=== PATIENT | female | born 1950 | race African-American/Black ===

== ENCOUNTER 2024-02-29 11:36 | Inpatient (IN) | payer OTHER ==
[~2024-02-29] VITALS: Ht 162.6 cm; Wt 73.0 kg
[2024-02-29 11:41] VITALS: PULSE 109; RESP 16; TEMP 98.1; O2SAT 98
[2024-02-29 12:44] LABS: BASOPHILS % (AUTO) 0.5 % (0.0-2.0); EOSINOPHILS % (AUTO) 0.7 % (0.0-4.0); HEMATOCRIT 20.9 % (36-48); LYMPHOCYTES # (AUTO) 0.5 K/uL (2.5-16.5); MEAN CORPUSCULAR HEMOGLOBIN 31 pg (27-31); MEAN CORPUSCULAR HGB CONC 32 g/dL (33-37); MEAN CORPUSCULAR VOLUME 94.8 fL (80-94); MONOCYTES # (AUTO) 0.6 K/uL (0.8-1.0); MONOCYTES % (AUTO) 8.4 % (1.7-9.3); NEUTROPHILS # (AUTO) 5.8 K/uL (1.8-7.7); NEUTROPHILS % (AUTO) 83.4 % (42.2-75.2); PLATELET COUNT (AUTO) 158 K/uL (140-450); RED CELL DISTRIBUTION WIDTH 20.6 % (11.6-13.7); WHITE BLOOD COUNT (AUTO) 6.9 K/uL (4.8-10.8)
[2024-02-29 13:00] LABS: ANION GAP 17.9 (8-16); CALCIUM 9.3 mg/dL (8.5-10.1); CARBON DIOXIDE 28.1 mmol/L (21-32); CHLORIDE 98 mmol/L (98-107); GLUCOSE 119 mg/dL (74-106); SODIUM SERUM 139 mmol/L (136-145); UREA NITROGEN, BLOOD 57 mg/dL (7-18)
[2024-02-29] MEDS: NACL 0.9% 500 ML IV ONE (13:00)
[2024-02-29 13:01] LABS: INR 1.16 (0.8-1.2); PROTHROMBIN TIME 12.1 secs (10.8-13.4)
[2024-02-29 13:05] LABS: HEMOGLOBIN 6.8 g/dL (12.0-16.0)
[2024-02-29 13:10] LABS: CREATININE 5.3 mg/dL (0.6-1.3)
[2024-02-29] MEDS: MIDODRINE 5 MG TAB PO ONE (13:18)
[2024-02-29] MEDS ORDERED: MAG SULF 2000 MG/WATER PREMIX 50 ML IV PRN (14:25)
[2024-02-29] MEDS ORDERED: POTASSIUM CHLORIDE 10 MEQ TABER PO PRN (14:25)
[2024-02-29] MEDS ORDERED: ACETAMINOPHEN 325 MG TAB PO PRN (14:25)
[2024-02-29 15:13] LABS: AMYLASE 143 U/L (25-115); CHOL/HDL RATIO 2.6 (1-4.5); CHOLESTEROL 103 mg/dL (<200); FREE T4 (FREE THYROXINE) 1.11 ng/dL (0.76-1.46); HDL CHOLESTEROL 39 mg/dL (40-60); LDL (CALC) 57 mg/dL (60-100); LIPASE 47 U/L (16-77); MAGNESIUM 2.5 mg/dL (1.8-2.4); PHOSPHORUS 6.1 mg/dL (2.5-4.9); THYROID STIMULATING HORMONE 4.59 uIU/mL (0.34-3.74); TRIGLYCERIDES 37 mg/dL (30-150)
[2024-02-29 15:24] LABS: PARTIAL THROMBOPLASTIN TIME 46.2 secs (22-35.6)
[2024-02-29] MEDS ORDERED: PHE25S RC (20:41)
[2024-02-29] MEDS ORDERED: FLOR250 PO (20:41)
[2024-02-29] MEDS ORDERED: OMEP-303 PO (20:41)
[2024-02-29] MEDS ORDERED: SYN.05 PO (20:41)
[2024-02-29] MEDS ORDERED: MEGE40SU23 PO (20:41)
[2024-02-29] MEDS ORDERED: ALPR0.5T2 PO (20:41)
[2024-02-29] MEDS ORDERED: SENN-73 PO (20:41)
[2024-02-29] MEDS ORDERED: ALBU0.0912 INH (20:41)
[2024-02-29] MEDS ORDERED: APIX2.5 PO (20:41)
[2024-02-29] MEDS: DOCUSATE SODIUM 100 MG GELCAP PO SCH (21:00)
[2024-02-29 21:12] VITALS: PULSE 104; RESP 20; O2SAT 97
[2024-03-01] VITALS (9 sets, daily range): BP systolic 109–145; BP diastolic 51–84; PULSE 101–143; RESP 16–20; TEMP 96.5–98; O2SAT 90–98
[2024-03-01] MEDS: PANTOPRAZOLE 40 MG INJ VIAL IVP SCH (09:48)
[2024-03-01] MEDS: EPOETIN ALFA-EPBX 10,000 UNITS/ML VIAL SUBQ SCH (09:49)
[2024-03-01] MEDS ORDERED: INSULIN LISPRO SLIDING SCALE 100 UNITS/ML VIAL SUBQ PRN (13:15)
[2024-03-01] MEDS ORDERED: ALBUTEROL HFA MDI 90 MCG/ACTUATION 8 GM INH PRN (13:30)
[2024-03-01] MEDS: BLOOD GLUCOSE MONITORING 1 DEV DEV FS SCH (17:22)
[2024-03-01] MEDS ORDERED: PROMETHAZINE 25 MG SUPP RC SCH (18:00)
[2024-03-01] MEDS ORDERED: NON-FORMULARY ITEM (Saccharomyces Boulardii* (Florastor*) 250 MG) PO SCH (21:00)
[2024-03-01] MEDS ORDERED: MEGESTROL ACETATE 800 MG PO SCH (21:00)
[2024-03-01] MEDS: MEGESTROL 400 MG/10 ML UDC PO SCH (21:19)
[2024-03-01] MEDS: APIXABAN 2.5 MG TAB PO SCH (21:20)
[2024-03-02] VITALS (8 sets, daily range): BP systolic 97–123; BP diastolic 59–89; PULSE 1–142; RESP 18–19; TEMP 97–98.6; O2SAT 95–99
[2024-03-02] MEDS: LEVOTHYROXINE 0.025 MG TAB PO SCH (05:45)
[2024-03-02] MEDS ORDERED: NON-FORMULARY ITEM (Omeprazole 20 MG) PO SCH (09:00)
[2024-03-02] MEDS: LACTOBACILLUS RHAMNOSUS GG 1 EACH CAP PO SCH (09:47)
[2024-03-02] MEDS: SENNA 8.6 MG TAB PO SCH (09:47)
[2024-03-02] MEDS: HYDROcodone/APAP 7.5/325 MG 1 TAB PO PRN (20:49)
[2024-03-02] MEDS: ALPRAZolam 0.5 MG TAB PO PRN (21:05)
[2024-03-02 21:57] LABS: BASOPHILS % (AUTO) 0.3 % (0.0-2.0); LYMPHOCYTES # (AUTO) 0.3 K/uL (2.5-16.5); LYMPHOCYTES % (AUTO) 4.5 % (20.5-51.1); MONOCYTES # (AUTO) 0.5 K/uL (0.8-1.0); NEUTROPHILS # (AUTO) 6.4 K/uL (1.8-7.7); WHITE BLOOD COUNT (AUTO) 7.3 K/uL (4.8-10.8)
[2024-03-02 22:00] LABS: EOSINOPHILS % (AUTO) 0.5 % (0.0-4.0); HEMOGLOBIN 7.8 g/dL (12.0-16.0); MEAN CORPUSCULAR HEMOGLOBIN 31 pg (27-31); MEAN CORPUSCULAR HGB CONC 33 g/dL (33-37); MEAN CORPUSCULAR VOLUME 94.1 fL (80-94); MONOCYTES % (AUTO) 6.9 % (1.7-9.3); NEUTROPHILS % (AUTO) 87.8 % (42.2-75.2); PLATELET COUNT (AUTO) 129 K/uL (140-450); RED BLOOD CELL COUNT(AUTO) 2.55 MIL/uL (4.20-5.40); RED CELL DISTRIBUTION WIDTH 19.6 % (11.6-13.7)
[2024-03-02 22:06] LABS: ANION GAP 17.9 (8-16); CALCIUM 8.9 mg/dL (8.5-10.1); CARBON DIOXIDE 25.8 mmol/L (21-32); CHLORIDE 100 mmol/L (98-107); GLUCOSE 123 mg/dL (74-106); POTASSIUM 4.7 mmol/L (3.5-5.1); SODIUM SERUM 139 mmol/L (136-145)
[2024-03-02 22:09] LABS: CREATININE 4.8 mg/dL (0.6-1.3); UREA NITROGEN, BLOOD 62 mg/dL (7-18)
[2024-03-02 22:34] LABS: MAGNESIUM 2.4 mg/dL (1.8-2.4); PHOSPHORUS 6.1 mg/dL (2.5-4.9)
[2024-03-03] VITALS (11 sets, daily range): BP systolic 85–150; BP diastolic 57–123; PULSE 50–152; RESP 18–20; TEMP 97–99.5; O2SAT 98–100
[2024-03-03 06:56] LABS: BASOPHILS # (AUTO) 0.1 K/uL (0.00-0.22); BASOPHILS % (AUTO) 1.1 % (0.0-2.0); EOSINOPHILS % (AUTO) 0.6 % (0.0-4.0); HEMATOCRIT 22.7 % (36-48); HEMOGLOBIN 7.3 g/dL (12.0-16.0); LYMPHOCYTES # (AUTO) 0.4 K/uL (2.5-16.5); LYMPHOCYTES % (AUTO) 6.1 % (20.5-51.1); MEAN CORPUSCULAR HEMOGLOBIN 30 pg (27-31); MEAN CORPUSCULAR HGB CONC 32 g/dL (33-37); MEAN CORPUSCULAR VOLUME 93.6 fL (80-94); MONOCYTES # (AUTO) 0.5 K/uL (0.8-1.0); MONOCYTES % (AUTO) 6.6 % (1.7-9.3); NEUTROPHILS # (AUTO) 6.1 K/uL (1.8-7.7); NEUTROPHILS % (AUTO) 85.6 % (42.2-75.2); PLATELET COUNT (AUTO) 140 K/uL (140-450); RED BLOOD CELL COUNT(AUTO) 2.43 MIL/uL (4.20-5.40); RED CELL DISTRIBUTION WIDTH 19.3 % (11.6-13.7); WHITE BLOOD COUNT (AUTO) 7.1 K/uL (4.8-10.8)
[2024-03-03 07:01] LABS: ANION GAP 18.1 (8-16); CALCIUM 8.7 mg/dL (8.5-10.1); CARBON DIOXIDE 27.2 mmol/L (21-32); CHLORIDE 99 mmol/L (98-107); GLUCOSE 105 mg/dL (74-106); POTASSIUM 5.3 mmol/L (3.5-5.1); SODIUM SERUM 139 mmol/L (136-145)
[2024-03-03 07:04] LABS: UREA NITROGEN, BLOOD 64 mg/dL (7-18)
[2024-03-03 07:05] LABS: CREATININE 5.1 mg/dL (0.6-1.3)
[2024-03-03 07:07] LABS: MAGNESIUM 2.4 mg/dL (1.8-2.4); PHOSPHORUS 6.3 mg/dL (2.5-4.9)
[2024-03-03] MEDS ORDERED: FOAM DRESSING TP PRN (11:45)
[2024-03-03] MEDS ORDERED: HYDRAGUARD CREAM TP PRN (11:45)
[2024-03-03] MEDS ORDERED: GAUZE TP PRN (11:45)
[2024-03-03] MEDS ORDERED: NON ADHERENT DRESSING TP PRN (11:45)
[2024-03-03] MEDS ORDERED: VANCOMYCIN PER PHARMACY MC PRN (12:25)
[2024-03-03] MEDS: MORPHINE SULFATE 2 MG/ML SYR IVP PRN (12:44)
[2024-03-03] MEDS: GAUZE TP SCH (13:00)
[2024-03-03] MEDS: HYDRAGUARD CREAM TP SCH (13:00)
[2024-03-03] MEDS: FOAM DRESSING TP SCH (13:00)
[2024-03-03] MEDS: NON ADHERENT DRESSING TP SCH (13:00)
[2024-03-03] MEDS ORDERED: NACL 0.9% 500 ML IV SCH (13:45)
[2024-03-03] MEDS: CALCIUM ACETATE 667 MG TAB PO SCH (17:51)
[2024-03-03] MEDS: VANCOMYCIN 1,000 MG in DEXTROSE 5% 250 ML IV SCH (21:03)
[2024-03-04] VITALS (19 sets, daily range): BP systolic 45–166; BP diastolic 25–59; PULSE 47–148; RESP 16–24; TEMP 96–98.1; O2SAT 88–100
[2024-03-04 06:29] LABS: BASOPHILS % (AUTO) 0.3 % (0.0-2.0); EOSINOPHILS % (AUTO) 0.2 % (0.0-4.0); HEMATOCRIT 23.7 % (36-48); HEMOGLOBIN 7.8 g/dL (12.0-16.0); LYMPHOCYTES # (AUTO) 0.4 K/uL (2.5-16.5); LYMPHOCYTES % (AUTO) 5.6 % (20.5-51.1); MEAN CORPUSCULAR HEMOGLOBIN 31 pg (27-31); MEAN CORPUSCULAR HGB CONC 33 g/dL (33-37); MEAN CORPUSCULAR VOLUME 93.5 fL (80-94); MONOCYTES # (AUTO) 0.6 K/uL (0.8-1.0); MONOCYTES % (AUTO) 8.3 % (1.7-9.3); NEUTROPHILS # (AUTO) 6.4 K/uL (1.8-7.7); NEUTROPHILS % (AUTO) 85.6 % (42.2-75.2); PLATELET COUNT (AUTO) 137 K/uL (140-450); RED BLOOD CELL COUNT(AUTO) 2.53 MIL/uL (4.20-5.40); RED CELL DISTRIBUTION WIDTH 18.9 % (11.6-13.7); WHITE BLOOD COUNT (AUTO) 7.5 K/uL (4.8-10.8)
[2024-03-04 06:40] LABS: MAGNESIUM 2.4 mg/dL (1.8-2.4); PHOSPHORUS 6.3 mg/dL (2.5-4.9)
[2024-03-04 06:42] LABS: ANION GAP 18.2 (8-16); CALCIUM 9.1 mg/dL (8.5-10.1); CARBON DIOXIDE 25.9 mmol/L (21-32); CHLORIDE 100 mmol/L (98-107); GLUCOSE 98 mg/dL (74-106); POTASSIUM 5.1 mmol/L (3.5-5.1); SODIUM SERUM 139 mmol/L (136-145); UREA NITROGEN, BLOOD 58 mg/dL (7-18)
[2024-03-04 06:49] LABS: CREATININE 5.1 mg/dL (0.6-1.3)
[2024-03-04] MEDS: MIDODRINE 5 MG TAB PO SCH (13:00)
[2024-03-04] MEDS: ALBUTEROL 0.083% 2.5 MG/3 ML NEBU INH PRN (14:04)
[2024-03-04] MEDS ORDERED: ALBUTEROL SULFATE/IPRATROPIU 3 ML SOL IH PRN (16:05)
[2024-03-04] MEDS: ALBUTEROL SULFATE/IPRATROPIU 3 ML SOL IH SCH (19:05)
[2024-03-04 20:07] LABS: BLOOD GAS PCO2 40.2 mmHg (35-45); BLOOD GAS PH 7.395 (7.35-7.45)
[2024-03-04 20:08] LABS: BLOOD GAS BASE EXCESS -0.7 mmol/L (-2.0-2.0); BLOOD GAS HCO3 24.1 mmol/L (22-26); BLOOD GAS O2 SAT% 78.7 % (92.0-98.5); BLOOD GAS PO2 48.7 mmHg (75-100)
[2024-03-04] MEDS: DEXTROSE 50% 50 ML SYR IVP PRN (21:20)
[2024-03-05] VITALS (13 sets, daily range): BP systolic 87–132; BP diastolic 56–72; PULSE 103–130; RESP 14–20; TEMP 96.2–97.8; O2SAT 92–100
[2024-03-05 04:56] LABS: BASOPHILS % (AUTO) 0.5 % (0.0-2.0); EOSINOPHILS # (AUTO) 0.1 K/uL (0-0.4); EOSINOPHILS % (AUTO) 0.6 % (0.0-4.0); HEMATOCRIT 25.8 % (36-48); HEMOGLOBIN 8.3 g/dL (12.0-16.0); LYMPHOCYTES # (AUTO) 0.4 K/uL (2.5-16.5); LYMPHOCYTES % (AUTO) 4.5 % (20.5-51.1); MEAN CORPUSCULAR HEMOGLOBIN 31 pg (27-31); MEAN CORPUSCULAR HGB CONC 32 g/dL (33-37); MEAN CORPUSCULAR VOLUME 95.6 fL (80-94); MONOCYTES # (AUTO) 0.4 K/uL (0.8-1.0); MONOCYTES % (AUTO) 4.1 % (1.7-9.3); NEUTROPHILS # (AUTO) 8.3 K/uL (1.8-7.7); NEUTROPHILS % (AUTO) 90.3 % (42.2-75.2); PLATELET COUNT (AUTO) 176 K/uL (140-450); RED CELL DISTRIBUTION WIDTH 19.4 % (11.6-13.7); WHITE BLOOD COUNT (AUTO) 9.2 K/uL (4.8-10.8)
[2024-03-05 04:59] LABS: ANION GAP 20.6 (8-16); CALCIUM 9.2 mg/dL (8.5-10.1); CARBON DIOXIDE 22.7 mmol/L (21-32); CHLORIDE 100 mmol/L (98-107); GLUCOSE 103 mg/dL (74-106); SODIUM SERUM 137 mmol/L (136-145)
[2024-03-05 05:02] LABS: POTASSIUM 6.3 mmol/L (3.5-5.1); UREA NITROGEN, BLOOD 70 mg/dL (7-18)
[2024-03-05 05:03] LABS: CREATININE 5.6 mg/dL (0.6-1.3)
[2024-03-05 05:05] LABS: MAGNESIUM 2.6 mg/dL (1.8-2.4); PHOSPHORUS 6.9 mg/dL (2.5-4.9)
[2024-03-05] MEDS: CALCIUM GLUC 1 GM/50 mL NS BAG 50 ML IV SCH (11:06)
[2024-03-05] MEDS: ALTEPLASE 2 MG VIAL MC SCH (12:15)
[2024-03-05] MEDS: ONDANSETRON 4 MG/2 ML VIAL IVP PRN (12:39)
[2024-03-05] MEDS: ALBUMIN HUMAN 25% 50 ML IV SCH (13:25)
[2024-03-05] MEDS ORDERED: VANC1VIA34 MC (16:43)
== END 2024-03-05 19:15 | DRG 602 ==
LOC: MED 11:36 → MTU 14:30 → MIC 03-04 21:34
PROC: 30233N1 Transfusion of Nonautologous Red Blood Cells into Peripheral Vein, Percutaneous Approach (ICD-10-PCS; principal; 2024-03-01)
PROC: 5A1D70Z Performance of Urinary Filtration, Intermittent, Less than 6 Hours Per Day (ICD-10-PCS; 2024-03-01)
PROC: 5A1D70Z Performance of Urinary Filtration, Intermittent, Less than 6 Hours Per Day (ICD-10-PCS; 2024-03-03)
PROC: 5A1D70Z Performance of Urinary Filtration, Intermittent, Less than 6 Hours Per Day (ICD-10-PCS; 2024-03-05)
DX: L03.031 Cellulitis of right toe (principal); G93.41 Metabolic encephalopathy; I21.A1 Myocardial infarction type 2; N17.0 Acute kidney failure with tubular necrosis; N18.6 End stage renal disease; J18.9 Pneumonia, unspecified organism; I13.2 Hypertensive heart and chronic kidney disease with heart failure and with stage 5 chronic kidney disease, or end stage renal disease; I50.42 Chronic combined systolic (congestive) and diastolic (congestive) heart failure; I95.9 Hypotension, unspecified; D63.1 Anemia in chronic kidney disease; E11.22 Type 2 diabetes mellitus with diabetic chronic kidney disease; E78.5 Hyperlipidemia, unspecified; F41.9 Anxiety disorder, unspecified; E03.9 Hypothyroidism, unspecified; Z79.899 Other long term (current) drug therapy; L89.159 Pressure ulcer of sacral region, unspecified stage; G35 Multiple sclerosis; M20.10 Hallux valgus (acquired), unspecified foot; M21.619 Bunion of unspecified foot
CPT/HCPCS: 36415; 36430; 71045; 73630; 80048; 80202; 82140; 82150; 82272; 82948; 83036; 83605; 83690; 83735; 83880; 84100; 84439; 84443; 84484; 85025; 85610; 85730; 86886; 86900; 86901; 86920; 87040; 87081; 87186; 90935; 92526; 93925; 93930; 93970; 93971; 94640; 97110; 97163-GP; 97530; 99285; C9113; J0610; J1644; J1815; J2270; J2405; J2470; J2550; J2997; J3370; J7060; J7613; P9016; P9046; Q0092; Q5106